=== PATIENT | male | born 1960 | race Caucasian/White ===

== ENCOUNTER 2018-05-07 12:21 | Day surgery (SDC) | payer BC ==
[~2018-05-07] VITALS: Ht 175.3 cm; Wt 90.3 kg
[~2018-05-07 12:21] MED LIST: CEPH500 PO; ESOM20; EXTRA STRENGTH500 MG; PANT40 PO; Prinivil10 MG PO; SERT100 PO; SERT50; Zocor20 MG PO
== END 2018-05-07 14:05 | disposition home or self-care (01) ==
LOC: ORSCSDS 12:21
PROVIDERS: Internal Medicine Gastroenterology
PROC: 0DBK8ZX Excision of Ascending Colon, Via Natural or Artificial Opening Endoscopic, Diagnostic (ICD-10-PCS; principal; 2018-05-07 13:45)
DX: Z12.11 Encounter for screening for malignant neoplasm of colon (principal); D12.2 Benign neoplasm of ascending colon; K57.30 Diverticulosis of large intestine without perforation or abscess without bleeding; Z86.010 Personal history of colon polyps; I10 Essential (primary) hypertension; Z79.899 Other long term (current) drug therapy
CPT/HCPCS: J7120

== ENCOUNTER 2019-02-08 06:08 | Day surgery (SDC) | payer OTHER ==
[~2019-02-08] VITALS: Ht 175.3 cm; Wt 93.7 kg
[2019-02-08] MEDS ORDERED: Advil200 M1 PO (06:39)
--- NOTE | 2019-02-08 07:10 | NUR ---
02/08/19 0710 Julee Lebron PREOP TEACHING DONE. LEFT KNEE ELEVATED FOR COMFORT. CALL LIGHT IS IN REACH.
== END 2019-02-08 09:36 | disposition home or self-care (01) ==
LOC: ORSCSDS 06:08
PROVIDERS: Orthopaedic Surgery
PROC: 0SBD4ZZ Excision of Left Knee Joint, Percutaneous Endoscopic Approach (ICD-10-PCS; principal; 2019-02-08 07:30)
DX: M23.242 Derangement of anterior horn of lateral meniscus due to old tear or injury, left knee (principal); M23.222 Derangement of posterior horn of medial meniscus due to old tear or injury, left knee; M94.262 Chondromalacia, left knee; I10 Essential (primary) hypertension; K21.9 Gastro-esophageal reflux disease without esophagitis; Z79.899 Other long term (current) drug therapy
CPT/HCPCS: J0171; J0690; J1100; J1885; J2250; J2405; J2704; J3010; J7120

== ENCOUNTER 2023-06-05 08:05 | Day surgery (SDC) | payer BC ==
[2023-06-05] VITALS (16 sets, daily range): BP systolic 83–175; BP diastolic 46–149
[~2023-06-05] VITALS: Ht 175.3 cm; Wt 96.0 kg
[~2023-06-05 08:05] MED LIST changes: +Advil200 M1 PO; +DIM PO; +TESTOSTERONE200 MG IM; +Vitamin B-12100 MCG PO; +[UNRECOGNIZED DRUG - OTHER] PO
--- NOTE | 2023-06-05 09:13 | NUR ---
History, Chart, Medications and Allergies reviewed before start of procedure. Lungs clear T/O to Auscultation. Patient confirms NPO status and agrees with scheduled surgery. Pre-Op teaching done. Pt verbalizes understanding. Patient reports completing Chlorhexadine shower X2 prior to admission to hospital.
--- NOTE | 2023-06-05 19:26 | NUR ---
SHIFT SUMMARY PT HAS DONE WELL TODAY. WORKED w/ THERAPY. PAIN WELL CONTROLLED. EATING, DRINKING, & VOIDING.
[2023-06-06 03:52] VITALS: BP 124/88
[2023-06-06 04:24] LABS: BASOPHILS ABSOLUTE AUTO 0.04 K/mm3 (0.00-0.23); BASOPHILS PERCENT AUTO 0 % (0-2); EOSINOPHILS PERCENT AUTO 2 % (0-6); Hematocrit 40.3 % (37.0-53.0); Hemoglobin 13.4 g/dL (13.5-17.5); IMMATURE GRAN ABSOLUTE AUTO 0.02 K/mm3 (0.00-0.10); IMMATURE GRAN PERCENT AUTO 0 % (0-1); LYMPHOCYTES ABSOLUTE AUTO 1.38 K/mm3 (0.84-5.20); LYMPHOCYTES PERCENT AUTO 13 % (21-46); MONOCYTES ABSOLUTE AUTO 0.99 K/mm3 (0.16-1.47); MONOCYTES PERCENT AUTO 9 % (4-13); Mean Corpuscular HGB 30.3 pg (26.0-34.0); Mean Corpuscular HGB Conc 33.3 g/dL (31.5-36.5); Mean Corpuscular Volume 91 fL (80-100); Mean Platelet Volume 9.4 fL (9.1-12.4); NEUTROPHILS ABSOLUTE AUTO 8.15 K/mm3 (1.96-9.15); NEUTROPHILS PERCENT AUTO 76 % (41-73); Platelet Count 202 K/mm3 (150-400); RDW Coefficient Variation 13.6 % (11.7-14.2); RDW Standard Deviation 45.5 fL (35.1-46.3); Red Blood Cell Count 4.42 M/mm3 (4.30-5.90); White Blood Cell Count 10.78 K/mm3 (4.00-11.30)
[2023-06-06 04:44] LABS: Bun/Creatinine Ratio 10.9 (12.0-20.0); Calcium, Blood 7.6 mg/dL (8.5-10.1); Creatinine, Blood 1.01 mg/dL (0.60-1.20); Magnesium, Blood 2.1 mg/dL (1.6-2.4); Potassium, Blood 3.9 mmol/L (3.5-5.5)
--- NOTE | 2023-06-06 05:16 | NUR ---
SHIFT SUMMARY NOC. PT POD 1 FOR RIGHT TOTAL KNEE. PT A/O X4. PT AMBULATED TO THE BR WITH SBA. VOIDING AND TOLERATING PO INTAKE. AQUACEL X2 ARE CLEAN, DRY, AND INTACT WITH SCANT DRAINAGE ON DISTAL AQUACEL. PT MEDICATED FOR PAIN WITH SOME RELIEF X2. PT RESTED WITH EYES CLOSED AND CALL LIGHT IN REACH.
[2023-06-06 07:21] VITALS: BP 133/85
[2023-06-06] MEDS ORDERED: ACET500 PO (07:47)
[2023-06-06] MEDS ORDERED: OXYC5 PO (07:48)
[2023-06-06] MEDS ORDERED: ASPI81CH PO (08:41)
--- NOTE | 2023-06-06 10:53 | NUR ---
DISCHARGE PT HAS CLEARED THERAPY. PAIN WELL CONTROLLED. EATING, DRINKING, & VOIDING WELL. DRSGS & POLAR PACK SENT w/ PT. ESCORTED OUT VIA W/C. ICE PACK MADE w/ MARLON FOR TRIP HOME TO RELIANCE.
== END 2023-06-06 11:03 | disposition home or self-care (01) ==
LOC: ORSCMMR 08:05 → ORD 09:30 → ORSCMMR 10:15 → SURS 11:32 → ORSCMMR 06-06 11:03
PROVIDERS: Orthopaedic Surgery
PROC: 0SRC0JA Replacement of Right Knee Joint with Synthetic Substitute, Uncemented, Open Approach (ICD-10-PCS; principal; 2023-06-05 10:15)
DX: M17.11 Unilateral primary osteoarthritis, right knee (principal); I10 Essential (primary) hypertension; E78.00 Pure hypercholesterolemia, unspecified; Z96.642 Presence of left artificial hip joint; E78.5 Hyperlipidemia, unspecified; Z79.899 Other long term (current) drug therapy
CPT/HCPCS: 36415; 73560-RT; 80048; 83735; 85025; 97110; 97116; 97162; A9270; C1713; C1776; C9113; J0171; J0690; J0735; J1885; J2250; J2704; J2795; J3010; J7120

== ENCOUNTER 2025-03-31 06:05 | Day surgery (SDC) | payer BC ==
[2025-03-31] VITALS (13 sets, daily range): BP systolic 113–136; BP diastolic 65–102
[~2025-03-31] VITALS: Ht 175.3 cm; Wt 91.7 kg
[~2025-03-31 06:05] MED LIST changes: +ACET500 PO; +ASPI81CH PO; +DEPO-TESTO200 MG/1 M IM; +HYDCHL50 PO; +LISI20 PO; +OXYC5 PO; +PANT20 PO; -PANT40 PO; -Prinivil10 MG PO; -TESTOSTERONE200 MG IM
[2025-03-31] MEDS ORDERED: CeFAZolin Sodium 2,000 MG in NS 100 ML IV SCH ×2 (06:15→16:00)
[2025-03-31] MEDS ORDERED: Tranexamic Acid 100 ML IV SCH (06:15)
[2025-03-31] MEDS ORDERED: Ropivacaine 0.5% HCl/Pf 123.125 MG,EPINEPHrine HCL 0.25 MG,Ketorolac Tromethamine 15 MG... INFIL SCH (06:15)
[2025-03-31] MEDS ORDERED: Chlorhexidine Mouth Care 15 ML UDC MT SCH (06:15)
--- NOTE | 2025-03-31 07:20 | NUR ---
Ambulatory in Day Surgery. History, Chart, Medications and Allergies reviewed before start of procedure.Patient confirms NPO status and agrees with scheduled surgery. Patient reports completing Chlorhexadine shower X2 prior to admission to hospital.CLIP PREP NOT NEEDED. DR HERNÁNDEZ NOTIFIED OF SMALL SCABS TO LEFT GROIN AND VERBALIZED OK TO PROCEED. Lungs clear T/O to Auscultation. AT BEDSIDE.
[2025-03-31] MEDS ORDERED: Ondansetron HCl 2 MG / ML 2ML Vial IV PRN ×2 (08:30→10:30)
[2025-03-31] MEDS ORDERED: HYDROmorphone HCl/Pf 1MG SYR IV PRN ×2 (08:30→10:25)
[2025-03-31] MEDS ORDERED: FentaNYL Citrate 50 MCG/ML 2 ML Injection IV PRN (08:30)
[2025-03-31] MEDS ORDERED: Midazolam HCl 1MG / ML 2ML Vial ONE (08:38)
[2025-03-31] MEDS ORDERED: FentaNYL Citrate 50 MCG/ML 2 ML Injection ONE (08:38)
[2025-03-31] MEDS ORDERED: Dexamethasone Sod Phos 10 MG/ML 1ML VIAL ONE (08:54)
[2025-03-31] MEDS ORDERED: Phenylephrine HCl 100 MCG/ML-NS 10MLSYR (1MG/10ML) ONE (09:13)
[2025-03-31] MEDS ORDERED: Prochlorperazine Edisylate 10 mg Vial IV PRN (10:30)
[2025-03-31] MEDS ORDERED: Metoclopramide HCl 5MG / ML 2ML Vial IV PRN (10:35)
[2025-03-31] MEDS ORDERED: Magnesium Hydroxide Conc 10 ML UDC PO PRN (10:35)
--- NOTE | 2025-03-31 11:20 | NUR ---
PT FROM RECOVERY TO ROOM 217.
[2025-03-31] MEDS ORDERED: Ketorolac Tromethamine 15mg Vial IV SCH (12:00)
[2025-03-31] MEDS ORDERED: ACET500 PO (13:31)
[2025-03-31] MEDS ORDERED: ASPI81CH PO (13:31)
[2025-03-31] MEDS ORDERED: OXYC5 PO (13:32)
[2025-03-31] MEDS ORDERED: DOCU100 PO (13:32)
--- NOTE | 2025-03-31 17:30 | NUR ---
PT DISCHARGED TO HOME WITH . DISCHARGE INSTRUCTIONS PROVIDED AND EDUCATED ON AT TIME OF DISCHARGE. ALL VALUABLES RETURNED AND SENT HOME WITH THE PT.
== END 2025-03-31 17:27 | disposition home or self-care (01) ==
LOC: ORSCMMR 06:05 → ORD 07:30 → ORSCMMR 08:30 → SURS 11:09 → ORSCMMR 14:45
PROVIDERS: Orthopaedic Surgery
PROC: 0SR90JA Replacement of Right Hip Joint with Synthetic Substitute, Uncemented, Open Approach (ICD-10-PCS; principal; 2025-03-31 08:30)
DX: M16.11 Unilateral primary osteoarthritis, right hip (principal); I10 Essential (primary) hypertension; Z79.899 Other long term (current) drug therapy; E78.00 Pure hypercholesterolemia, unspecified; Z96.642 Presence of left artificial hip joint
CPT/HCPCS: 72170; 82947; 97116; 97161; 97530; A9270; C1776; J0166; J0690; J0735; J1100; J1885; J2250; J2371; J2704; J2795; J3010; J7120